=== PATIENT | male | born 2000 | race Two or more races ===

== ENCOUNTER 2024-02-02 14:27 | Emergency (ER) | payer MEDICAID ==
[~2024-02-02] VITALS: Ht 162.6 cm; Wt 70.3 kg
[2024-02-02 15:57] LABS: APPEARANCE,URINE Clear (CLEAR); BILIRUBIN,URINE Negative (NEGATIVE); BLOOD, URINE Small Ery/uL (NEGATIVE); COLOR,URINE YELLOW (YELLOW); KETONES,URINE Negative (NEGATIVE); LEUKOCYTE ESTERASE ,URINE Trace (NEGATIVE); NITRITE, URINE Negative (NEGATIVE); PROTEIN,URINE Negative (NEGATIVE); UGLUCOSE Negative (NEGATIVE); UROBILINOGEN,URINE 0.2 EU/dL (0.2)
[2024-02-02 16:06] LABS: BASOPHILS # (AUTO) 0.1 K/uL (0.0-0.2); EOSINOPHILS % (AUTO) 0.5 % (0.0-6.0); HEMATOCRIT 39 % (39-51); HEMOGLOBIN 12.5 g/dL (13.5-17.5); LYMPHOCYTES # (AUTO) 1.5 K/uL (0.8-4.8); LYMPHOCYTES % (AUTO) 23.3 % (20.0-44.0); MEAN CORPUSCULAR HEMOGLOBIN 24 PG (26.0-33.0); MEAN CORPUSCULAR HGB CONC 32 g/dl (31.0-36.0); MEAN CORPUSCULAR VOLUME 74 fL (80-96); MONOCYTES # (AUTO) 0.7 K/uL (0.1-1.30); MONOCYTES % (AUTO) 10.7 % (2.0-12.0); NEUTROPHILS % (AUTO) 64.5 % (43.0-81.0); PLATELET COUNT (AUTO) 337 K/uL (150-450); RED BLOOD CELL COUNT(AUTO) 5.18 MIL/uL (4.5-6.0); RED CELL DISTRIBUTION WIDTH 15.7 % (11.5-15.0); WHITE BLOOD COUNT (AUTO) 6.2 K/uL (4.3-11.0)
[2024-02-02 16:11] LABS: PREGNANCY TEST URINE QUAL NEGATIVE
[2024-02-02 16:12] LABS: ADD URINE CULTURE NO; BACTERIA,URINE Few /HPF (None Seen)
[2024-02-02 16:13] LABS: SQUAMOUS EPITHELIAL CELL,UR None Seen /HPF (None Seen)
[2024-02-02 16:18] LABS: CREATININE 0.8 mg/dL (0.6-1.3); POTASSIUM 3.6 mmol/L (3.5-5.1)
[2024-02-02 16:23] LABS: ALBUMIN 3.7 g/dL (3.4-5.0); BILIRUBIN,DIRECT 0.1 mg/dL (0.0-0.2); BILIRUBIN,TOTAL 0.4 mg/dL (0.2-1.0); TOTAL PROTEIN, SERUM 7.1 g/dL (6.4-8.2)
[2024-02-02] MEDS ORDERED: ONDANSETRON 4 MG TAB.RAPDIS ONE (16:36)
[2024-02-02] MEDS ORDERED: CEFTRIAXONE 500 MG VIAL ONE (16:36)
[2024-02-02] MEDS ORDERED: LIDOCAINE 1% INJ 50 ML MDV IJ ONE (16:36)
[2024-02-02] MEDS ORDERED: AZITHROMYCIN 250 MG TABLET ONE (16:37)
[2024-02-02] MEDS: AZITHROMYCIN 250 MG TABLET PO ONE (16:38)
[2024-02-02] MEDS: CEFTRIAXONE 500 MG VIAL IM ONE (16:38)
[2024-02-02] MEDS: ONDANSETRON 4 MG TAB.RAPDIS SL ONE (16:38)
[2024-02-02 17:37] VITALS: BP 128/65; TEMP 98; O2SAT 100
[2024-02-03 23:07] LABS: NEISSERIA GONORRHOEAE NAA Negative (Negative)
[2024-02-04 00:11] LABS: CHLAMYDIA TRACHOMATIS NAA Positive (Negative)
[2024-02-10] MEDS ORDERED: DOXY100C2 PO (09:47)
== END 2024-02-02 17:41 | disposition home or self-care (01) ==
LOC: ER 14:27
DX: R35.0 Frequency of micturition (principal); R39.15 Urgency of urination; R10.2 Pelvic and perineal pain; R11.2 Nausea with vomiting, unspecified; Z60.2 Problems related to living alone
CPT/HCPCS: 99285; 76856; 96372; 85025; 80048; 80076; 84703; 81001; 36415; 84702; 87491; 87591; J3490; J0696; Q0162